=== PATIENT | female | born 1990 | race Caucasian/White ===

== ENCOUNTER 2017-09-03 14:34 | Emergency (ER) | payer MEDICAID ==
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
[2017-09-03] MEDS ORDERED: Sodium Chloride 0.9% 10 ML Syringe FLUSH PRN (15:09)
[2017-09-03 15:51] LABS: CHLORIDE,CL 105 mmol/L (101-111); SODIUM,NA 139 mmol/L (135-145)
[2017-09-03] MEDS ORDERED: Sodium Chloride 0.9% 1,000 ML IV ONE (16:13)
[2017-09-03 17:01] VITALS: BP 113/71
== END 2017-09-03 17:40 | disposition home or self-care (01) ==
LOC: DL.ED 14:34
DX: R53.1 Weakness (principal); R47.81 Slurred speech; F17.210 Nicotine dependence, cigarettes, uncomplicated; Z88.8 Allergy status to other drugs, medicaments and biological substances
CPT/HCPCS: 36415; 80053; 80305; 81001; 81025; 85025; 96360; 99283; J7030; J7050

== ENCOUNTER 2019-01-21 21:21 | Emergency (ER) | payer MEDICAID ==
[2019-01-21 21:30] VITALS: BP 109/66; PULSE 103
[2019-01-21] MEDS ORDERED: Lidocaine 1% 30 ML SDV INJECT ONE (21:32)
[2019-01-21] MEDS ORDERED: Bacitracin Oint 1 GM U/D Packet TOP ONE (21:32)
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
== END 2019-01-21 21:55 | disposition home or self-care (01) ==
LOC: DL.ED 21:21
DX: S61.211A Laceration without foreign body of left index finger without damage to nail, initial encounter (principal); W26.0XXA Contact with knife, initial encounter; Y93.89 Activity, other specified; E10.8 Type 1 diabetes mellitus with unspecified complications; Z79.4 Long term (current) use of insulin; Z88.7 Allergy status to serum and vaccine; Z79.899 Other long term (current) drug therapy
CPT/HCPCS: 12001; 82962; 99282; J2001